=== PATIENT | female | born 1985 | race Caucasian/White ===

== ENCOUNTER 2016-07-02 15:39 | Inpatient (IN) | payer MEDICAID ==
[~2016-07-02] VITALS: Ht 154.9 cm; Wt 67.7 kg
[~2016-07-02 15:39] MED LIST: ACET500C5 PO; ONDA4TAB8 PO
[2016-07-02] MEDS ORDERED: IBUPROFEN 600 MG TAB PO PRN (17:30)
[2016-07-02] MEDS ORDERED: CARBOPROST 250 MCG INJ IM PRN (17:30)
[2016-07-02] MEDS ORDERED: OXYTOCIN 30 UNITS/LR 500 ML IV PRN (17:30)
[2016-07-02] MEDS ORDERED: BUTORPHANOL 2 MG INJ IV PRN ×2 (17:30)
[2016-07-02] MEDS ORDERED: MISOPROSTOL 200 MCG TAB PR PRN (17:30)
[2016-07-02] MEDS ORDERED: OXYTOCIN 30 UNITS/LR 500 ML IV SCH ×3 (17:30→18:30)
[2016-07-02] MEDS ORDERED: METHYLERGONOVINE 0.2 MG INJ IM PRN (17:30)
[2016-07-02] MEDS ORDERED: LIDOCAINE 1% (MPF) 30 ML INJ INJ PRN (17:30)
[2016-07-02 17:33] VITALS: BP 119/72; RESP 18
[2016-07-02 17:36] VITALS: Ht 154.9 cm; Wt 67.7 kg
[2016-07-02] MEDS ORDERED: FOLI0.4T2 PO (17:45)
[2016-07-02] MEDS ORDERED: PRENAT PO (17:45)
--- NOTE | 2016-07-02 17:52 | RADRPT ---
PROCEDURE: Obstetrical ultrasound. CLINICAL INDICATION: , evaluation. Pelvic pain. Preprocedural examination. TECHNIQUE: Transabdominal sonographic images of the pelvis are obtained. COMPARISON: OB ultrasound 01/04/2016 FINDINGS: Single intrauterine gestation. There is a cephalic presentation. Measurements were made in order to determine age. The results are as follows: BPD = 8.91 cm HC = 31.66 cm AC = 34.88 cm FL = 7.51 cm Amniotic fluid index is not measured. Heart rate = 158 beats per minute The placenta is fundal - left. There is no evidence for an abruption or placenta previa. Ovaries are not visualized. IMPRESSION: Single intrauterine gestation of approximately 37 weeks 1 days by ultrasound criteria. [place] estimated weight = 3360 g; 34 percentile for gestational age of 39 weeks 4 days. Gestational age and average ultrasound age are discordant, recommend confirmation of gestational age /LMP. RPTAT: AADD .Pete Scanlon MD, MD Date Time Electronically viewed and signed by .Pete Scanlon MD, on 07/02/2016 17:52 .B/
[2016-07-02] MEDS: LACTATED RINGER'S 1,000 ML IV SCH (18:01)
[2016-07-02 18:53] LABS: ADD SCAN DIFF NO
[2016-07-02 18:56] LABS: BASOPHILS % 0.4 % (0.0-2.0); EOSINOPHILS # 0.2 10^3/ul (0.0-0.5); EOSINOPHILS % 1.8 % (0.0-7.0); HEMATOCRIT 40.2 % (37.0-47.0); LYMPHOCYTES # 1.9 10^3/ul (0.8-2.9); LYMPHOCYTES % 18.7 % (15.0-51.0); MEAN CORPUSCULAR HEMOGLOBIN 33.3 pg (29.0-33.0); MEAN CORPUSCULAR HGB CONC 34.8 g/dl (32.0-37.0); MEAN CORPUSCULAR VOLUME 95.5 fl (82.0-101.0); MEAN PLATELET VOLUME 10.6 fl (7.4-10.4); MONOCYTE # 0.8 10^3/ul (0.3-0.9); NEUTROPHILS % 70.3 % (39.0-77.0); PLATELET COUNT 282 10^3/UL (140-415); RED BLOOD COUNT 4.21 10^6/ul (4.20-5.40); RED CELL DISTRIBUTION WIDTH 12.8 % (11.5-14.5)
[2016-07-02 19:12] LABS: INR 0.94; PROTIME 12.6 Sec (12.2-14.2)
[2016-07-02 19:13] LABS: PARTIAL THROMBOPLASTIN TIME 28.9 Sec (25.0-35.0)
[2016-07-03] MEDS: DEXTROSE 5%-LR 1,000 ML IV PRN ×2 (00:47→08:29)
[2016-07-03] MEDS: LACTATED RINGER'S 1,000 ML IV SCH ×3 (01:12→17:12)
[2016-07-03] MEDS: LACTATED RINGER'S 1,000 ML IV PRN ×2 (16:45→17:20)
[2016-07-03] MEDS ORDERED: NALOXONE (0.4 MG/ML) INJ IV PRN (17:30)
[2016-07-03] MEDS ORDERED: ONDANSETRON 4 MG INJ IV PRN (17:30)
[2016-07-03] MEDS ORDERED: FENTAnyl 2MCG/ML-ROPIV 0.2% 100 ML BAG EPI SCH (17:30)
[2016-07-03] MEDS ORDERED: DIPHENHYDRAMINE 50 MG INJ IV PRN (17:30)
[2016-07-03] MEDS ORDERED: FENTAnyl 2MCG/ML-ROPIV 0.2% 100 ML ONE (17:31)
[2016-07-04] MEDS: LACTATED RINGER'S 1,000 ML IV SCH (01:12)
--- NOTE | 2016-07-04 02:03 | LDN ---
Date/Time of Note Date/Time of Note DATE: 07/04/16 TIME: 02:02 Delivery Summary Placenta Delivered: Spontaneously Meconium: none Episiotomy: No Perineal laceration: 2 Anesthesia type: Epidural Estimated blood loss: 200 Sponge & Needle done & correct: Yes All needle counts correct: Yes Any foreign bodies felt in the: No Problems: Infant Delivery Information Apgars 1 Minute: 9 5 Minute: 9 Suctioning Nose & mouth suctioned at james: Yes Delee suction performed: Yes Umbilical Cord Umbilical cord with: 3 Vessels Cord presentations: nuchal cord Nuchal cord present X: 1 Cord Blood was obtained: Yes Mother & Baby Disposition Disposition Mom & Baby to Maternity; Good: Yes Baby to NICU: No STEVE ALEMAN M.D. July 04, 2016 02:03
--- NOTE | 2016-07-04 02:05 | HP ---
Date/Time of Note Date/Time of Note DATE: 07/04/16 TIME: 02:03 OB - History Hx of Present Free Text/Dictation 39+wks GA early labor : 1 Para: 0 Care: Good Care Ultrasounds: Normal mid trimester US Obstetrical Complications: None Medical Complications: None Past Family/Social History * Past Medical, Surgical, Family and Obstetric Histories reviewed from chart. OB Admission Exam Vital Signs Vital Signs Vital Signs Date Time Temp Pulse Resp B/P Pulse Ox O2 Delivery O2 Flow Rate FiO2 07/02/16 17:33 98.6 18 119/72 Room Air Physical Exam Abdomen: WNL Extremities: Normal Cervical Dilatation: 2cm Effacement: 75% Station: -1 Membranes: Intact Heart Rate: 140's Accelerations: Accelerations Present Decelerations: No Decelerations Varibility: Moderate Contractions on Admission: 6-10 Minutes Apart Last 72 hourBlood Glucose Bedside Glucose - 72 Hours Test 07/03/16 00:43 07/03/16 04:36 07/03/16 08:28 07/03/16 14:46 Bedside Glucose 89mg/dL (70-220) 94mg/dL (70-220) 85mg/dL (70-220) 95mg/dL (70-220) Test 07/03/16 18:18 Bedside Glucose 91mg/dL (70-220) Last 72 hours Lab Results CBC & BMP 07/02/16 17:55 OB Assessment/Plan Reason for admission: observation Plan: Expectant Management Induction Method: per Pitocin Protocol STEVE ALEMAN M.D. July 04, 2016 02:05
--- NOTE | 2016-07-04 02:12 | DELSUM ---
Delivery Summary A-C Datetime Report Generated by CPN: 07/04/2016 02:11 DELIVERY PERSONNEL Embosser Apprentice: Long, Addis MATERNAL INFORMATION Delivery Anesthesia: Epidural Medications in Delivery: OXYTOCIN 30UNITS IN 500ML LR Estimated Blood Loss (ml): 205 Placenta Cultured: No Maternal Complications: Other Other Maternal Complications: GESTATIONAL DIABETES LABOR SUMMARY EDC: 07/05/2016 00:00 No. Babies in Womb: 1 Attempted: No Labor Anesthesia: None LABOR INFORMATION Reason for Induction: Other Onset of Labor: 07/03/2016 10:09 Complete Dilatation: 07/03/2016 22:16 Oxytocin: Induction Group B Beta Strep: Negative Group B Beta Strep: Negative Antibiotics # of Doses: 0 Steroids Given: None Reason Steroids Not Administered: Not Applicable MEMBRANES Membranes Rupture Method: Artificial Rupture of Membranes: 07/03/2016 10:09 Length of Rupture (hr): 15.05 Amniotic Fluid Color: Clear Amniotic Fluid Color: Clear Amniotic Fluid Color: Clear Amniotic Fluid Color: Clear Amniotic Fluid Color: Clear Amniotic Fluid Color: Clear Amniotic Fluid Color: Clear Amniotic Fluid Color: Clear Amniotic Fluid Color: Clear Amniotic Fluid Color: Clear Amniotic Fluid Color: Clear Amniotic Fluid Color: Clear Amniotic Fluid Color: Clear Amniotic Fluid Color: Clear Amniotic Fluid Color: Clear Amniotic Fluid Color: Clear Amniotic Fluid Amount: Moderate Amniotic Fluid Amount: Moderate Amniotic Fluid Amount: Moderate Amniotic Fluid Amount: Moderate Amniotic Fluid Amount: Moderate Amniotic Fluid Amount: Moderate Amniotic Fluid Amount: Moderate Amniotic Fluid Amount: Moderate Amniotic Fluid Amount: Moderate Amniotic Fluid Amount: Moderate Amniotic Fluid Amount: Moderate Amniotic Fluid Amount: Moderate Amniotic Fluid Amount: Moderate Amniotic Fluid Amount: Moderate Amniotic Fluid Amount: Moderate Amniotic Fluid Amount: Moderate Amniotic Fluid Odor: None Amniotic Fluid Odor: None Amniotic Fluid Odor: None Amniotic Fluid Odor: None Amniotic Fluid Odor: None Amniotic Fluid Odor: None Amniotic Fluid Odor: None Amniotic Fluid Odor: None Amniotic Fluid Odor: None Amniotic Fluid Odor: None Amniotic Fluid Odor: None Amniotic Fluid Odor: None Amniotic Fluid Odor: None Amniotic Fluid Odor: None Amniotic Fluid Odor: Normal Amniotic Fluid Odor: Normal STAGES OF LABOR Stage 1 hr: 12 Stage 1 min: 7 Stage 2 hr: 2 Stage 2 min: 56 Stage 3 hr: 0 Stage 3 min: 1 Total Time in Labor hr: 15 Total Time in Labor min: 4 VAGINAL DELIVERY Episiotomy: None Laceration Extension: Second Degree Laceration Type: Perineal Laceration Repair: Yes Initial Vag Sponge Count: 20 Final Vag Sponge Count: 20 Initial Vag Sharps Count: 1 Final Vag Sharps Count: 4 Sponge Count Correct: Yes Sharps Count Correct: Yes BABY A INFORMATION Infant Delivery Date/Time: 07/04/2016 01:12 Method of Delivery: Vaginal Born in Route : No : N/A Forceps: N/A Vacuum Extraction: N/A Shoulder Dystocia : N/A SHOULDER DYSTOCIA BABY A Infant Delivery Date/Time: 07/04/2016 01:12 PRESENTATION/POSITION BABY A Presentation: Cephalic Presentation: Cephalic Cephalic Presentation: Vertex Vertex Position: Left Occipital Posterior Breech Presentation: N/A PLACENTA INFORMATION BABY A Placenta Delivery Time : 07/04/2016 01:13 Placenta Method of Delivery: Spontaneous Placenta Status: Delivered SCORES BABY A Heart Rate 1 min: >100 bpm Resp Effort 1 min: Good Cry Reflex Irritability 1 min: Cough/Sneeze/Pulls Away Muscle Tone 1 min: Active Motion Color 1 min: Body [place], Extremit Blue Resuscitation Effort 1 min: Tactile Stimulation SCORE 1 MIN: 9 Heart Rate 5 min: >100 bpm Resp Effort 5 min: Good Cry Reflex Irritability 5 min: Cough/Sneeze/Pulls Away Muscle Tone 5 min: Active Motion Color 5 min: Body [place], Extremit Blue Resuscitation Effort 5 min: Tactile Stimulation SCORE 5 MIN: 9 INFORMATION BABY A Gestational Age at Delivery: 39.5 Gestational Status: Full Term- 39- 40.6 Weeks Infant Outcome : Liveborn Infant Condition : Stable Infant Sex: Male IDENTIFICATION/MEDS BABY A ID Band Number: [id number] ID Band Location: Right Leg; Left Arm Sensor Applied: Yes Sensor Number: [id number] Sensor Location : Cord Clamp Vitamin K Given : Not Given Erythromycin Given: Not Given WEIGHT/LENGTH BABY A Infant Birthweight (gm): 3030 Infant Weight (lb): 6 Infant Weight (oz): 11 Length (in): 18.50 Infant Length (cm): 46.99 CORD INFORMATION BABY A No. Cord Vessels: 3 Nuchal Cord : Around Neck x1, Loose Cord Blood Taken: Yes Banking/Donate Info: NO Suction: Mouth; Nose ASSESSMENT BABY A Infant Complications: None Physical Findings at Delivery: Within Normal Limits Infant Respirations: Appears Normal Infant Care By: CHANEL RENDON RN Transferred To: Remains with Mother
[2016-07-04 03:20] VITALS: BP 110/64; PULSE 79; RESP 18
[2016-07-04] MEDS ORDERED: LANOLIN 7 GM TUBE TOP PRN (04:00)
[2016-07-04] MEDS ORDERED: CARBOPROST 250 MCG INJ IM PRN (04:00)
[2016-07-04] MEDS ORDERED: METHYLERGONOVINE 0.2 MG INJ IM PRN (04:00)
[2016-07-04] MEDS ORDERED: MISOPROSTOL 200 MCG TAB PR PRN (04:00)
[2016-07-04] MEDS ORDERED: SENNA/DOCUSATE NA (8.6MG/50MG) TAB PO PRN (04:00)
[2016-07-04] MEDS ORDERED: ZOLPIDEM 5 MG TAB PO PRN (04:00)
[2016-07-04] MEDS ORDERED: OXYCODONE/ASPIRIN (4.88/325) TAB PO PRN (04:00)
[2016-07-04] MEDS ORDERED: OXYTOCIN 30 UNITS/LR 500 ML IV PRN (04:00)
[2016-07-04] MEDS ORDERED: BENZOCAINE 20% 56 ML SPRAY TOP PRN (04:00)
[2016-07-04] MEDS: WITCH HAZEL/GLYCERIN PAD PR PRN (04:41)
[2016-07-04] MEDS: IBUPROFEN 600 MG TAB PO SCH ×4 (05:21→23:48)
[2016-07-04] MEDS: LACTATED RINGER'S 1,000 ML IV* SCH ×3 (06:11→19:38)
[2016-07-04 07:59] LABS: ADD SCAN DIFF NO
[2016-07-04 08:04] LABS: ABNORMAL IP MESSAGE 1; HEMATOCRIT 37.1 % (37.0-47.0); HEMOGLOBIN 12.5 g/dl (12.0-16.0); MEAN CORPUSCULAR HEMOGLOBIN 32.6 pg (29.0-33.0); MEAN CORPUSCULAR HGB CONC 33.7 g/dl (32.0-37.0); MEAN CORPUSCULAR VOLUME 96.9 fl (82.0-101.0); MEAN PLATELET VOLUME 10.8 fl (7.4-10.4); PLATELET COUNT 235 10^3/UL (140-415); RED BLOOD COUNT 3.83 10^6/ul (4.20-5.40); RED CELL DISTRIBUTION WIDTH 13.2 % (11.5-14.5); WHITE BLOOD COUNT 24.2 10^3/ul (4.8-10.8)
[2016-07-04 09:01] VITALS: BP_SYST 111; BP_SYST 94; BP_DIAS 61; BP_DIAS 71; PULSE 75; PULSE 80; RESP 16
[2016-07-04] MEDS: SENNA/DOCUSATE NA (8.6MG/50MG) TAB PO SCH ×2 (09:08→21:09)
[2016-07-04 11:14] LABS: LYMPHOCYTES # 2.4 10^3/ul (0.8-2.9); MONOCYTE # 2.2 10^3/ul (0.3-0.9); NEUTROPHIL # 19.6 10^3/ul (1.6-7.5)
[2016-07-04 12:24] VITALS: BP 93/61; PULSE 83; RESP 16
--- NOTE | 2016-07-04 13:04 | QN ---
Documentation Comment PPD#1 is stable afebrile tolerates deit No Vb +BM +voids Vs stable Gen NAD Abd soft NT ND Genitalia No blood at perinium --->discharge plan tomorrow STEVE ALEMAN M.D. July 04, 2016 13:04
[2016-07-04 16:47] VITALS: BP 99/51; PULSE 84; RESP 14
[2016-07-04 20:00] VITALS: BP 104/72; PULSE 78; RESP 17
[2016-07-05] MEDS: LACTATED RINGER'S 1,000 ML IV* SCH ×3 (03:38→19:38)
[2016-07-05 04:00] VITALS: BP 100/58; PULSE 75; RESP 17
[2016-07-05] MEDS: IBUPROFEN 600 MG TAB PO SCH ×4 (06:25→23:31)
[2016-07-05 08:00] VITALS: BP 120/70; PULSE 74; RESP 20
[2016-07-05] MEDS: SENNA/DOCUSATE NA (8.6MG/50MG) TAB PO SCH ×2 (10:05→21:00)
[2016-07-05] MEDS: WITCH HAZEL/GLYCERIN PAD PR PRN (15:14)
[2016-07-05 15:30] VITALS: PULSE 70; RESP 18
[2016-07-05 16:00] VITALS: BP 111/68; PULSE 70; RESP 16
[2016-07-05] MEDS ORDERED: DIPHTH/TET/ACEL PERTUSS (ADULT) 0.5 ML VIAL IM* ONE (16:00)
[2016-07-05 19:35] VITALS: BP 121/77; PULSE 80; RESP 18
[2016-07-06] MEDS: LACTATED RINGER'S 1,000 ML IV* SCH ×2 (03:38→11:38)
[2016-07-06 04:00] VITALS: BP 111/63; PULSE 68; RESP 17
[2016-07-06] MEDS: IBUPROFEN 600 MG TAB PO SCH (05:21)
[2016-07-06 08:00] VITALS: BP 121/93; PULSE 67; RESP 17
[2016-07-06] MEDS ORDERED: DIPHTH/TET/ACEL PERTUSS (ADULT) 0.5 ML VIAL IM* ONE (09:00)
[2016-07-06] MEDS: SENNA/DOCUSATE NA (8.6MG/50MG) TAB PO SCH (10:09)
== END 2016-07-06 15:31 | disposition home or self-care (01) | DRG 775 ==
LOC: L-D 15:39 → PP1 07-04 03:07 → EDSTATUS 07-05 15:39
PROVIDERS: ADMIT Obstetrics & Gynecology; ATTEND Obstetrics & Gynecology
PROC: 10E0XZZ Delivery of Products of Conception, External Approach (ICD-10-PCS; principal; 2016-07-03)
PROC: 0KQM0ZZ Repair Perineum Muscle, Open Approach (ICD-10-PCS; 2016-07-03)
DX: O70.1 Second degree perineal laceration during delivery (principal); Z37.0 Single live birth; O69.81X0 Labor and delivery complicated by cord around neck, without compression, not applicable or unspecified; Z3A.39 39 weeks gestation of pregnancy
CPT/HCPCS: 62319; 76815; 82947; 82962; 85025; 85610; 85730; 86592; 86900; 86901; 90715; J2590; J3010; J7120

== ENCOUNTER 2018-05-16 19:18 | Outpatient (CLI) | payer MEDICAID ==
[~2018-05-16] VITALS: Ht 154.9 cm; Wt 65.4 kg
[2018-05-16 20:00] VITALS: BP 122/70; PULSE 104; RESP 18
[2018-05-16] MEDS ORDERED: AL HYDROX/MG HYDROX/SIMETH 30 ML CUP PO ONE (21:00)
[2018-05-16] MEDS ORDERED: ACETAMINOPHEN 325 MG TAB PO ONE (21:00)
[2018-05-16] MEDS ORDERED: FERR134T PO (21:58)
[2018-05-16] MEDS ORDERED: PREN-19 PO (21:58)
--- NOTE | 2018-05-16 23:38 | PN ---
Triage Information Date/Time Reason for visit: Weeks of Gestation 30w 4d /Para Objective Vital Signs Date Temp Pulse Resp B/P (MAP) Pulse Ox O2 O2 Flow FiO2 Time Delivery Rate 05/16/18 98.6 104 18 122/70 Room Air 20:00 (87) Heart Rate Comments reactive Contractions: None Exam EKG: sinus tachycardia Results/Medications Result Diagram: 05/16/182204 Results 24 hrs Laboratory Tests Test 05/16/18 19:30 05/16/18 22:05 Urine Color YELLOW Urine Clarity SLIGHTLY CLOUDY A Urine pH 7.0 Urine Specific [place] 1.003 Urine Ketones NEGATIVE Urine Nitrite NEGATIVE Urine Bilirubin NEGATIVE Urine Urobilinogen NEGATIVE Urine Leukocyte Esterase NEGATIVE Urine Microscopic RBC 0 Urine Microscopic WBC 3 Urine Squamous Epithelial Cells FEW Urine Bacteria FEW A Urine Hemoglobin 1+ H Urine Glucose 1+ H Urine Total Protein NEGATIVE White Blood Count 17.5 #H Red Blood Count 4.06 L Hemoglobin 12.7 Hematocrit 37.9 Mean Corpuscular Volume 93.3 Mean Corpuscular Hemoglobin 31.3 Mean Corpuscular Hemoglobin Concent 33.5 Red Cell Distribution Width 13.4 Platelet Count 283 # Mean Platelet Volume 9.8 Immature Granulocytes % 1.100 H Neutrophils % 80.2 H Lymphocytes % 8.9 L Monocytes % 8.1 Eosinophils % 1.2 Basophils % 0.5 Nucleated Red Blood Cells % 0.0 Immature Granulocytes # 0.190 H Neutrophils # 14.0 H Lymphocytes # 1.6 Monocytes # 1.4 H Eosinophils # 0.2 Basophils # 0.1 Nucleated Red Blood Cells # 0.0 Disposition: Discharge Assessment/Plan 32 y/o at 30w 4d who presents with pleuritic chest pain. Patient denies any URI symptoms. Also reports episodes of dizziness over last 2 weeks. Chestpain resolved with tylenol and [place]. Tachycardia improved. Cbc with leukocytosis, but patient afebtile. EKG with sinus rhythm. -discharge home -tylenol prn, suspect musculoskeletal -f/u OB LATISHA WYMAN May 16, 2018 23:38
--- NOTE | 2018-05-17 06:15 | TRIAGE ---
OB Triage Datetime Report Generated by CPN: 05/17/2018 06:15 Datetime: 05/16/2018 23:10 Stage of : OB Triage Labor Evaluation Frequency: 10-15 Monitor Mode: External Duration (sec)2399: 60-100 Quality: Moderate Pattern: Normal: <= 5 Contractions in 10 Minutes Resting Tone [place]: Relaxed Heart Rate FHR Baseline Rate: 140 Monitor Mode: External US FHR Baseline Changes: No Baseline Change Variability: Moderate 6-25 bpm Accelerations: 15X15 Decelerations: None Category: Category I Pain Assessment Pain Scale: 0 Pain Presence: None/Denies Pain Type: N/A Vaginal Exam Dilatation (cms): 2.0 Effacement (%): 60 Station: -2 Exam By: Caity Cosme Membrane Status: Intact Vaginal Bleeding: Scant Cervix, Consistency: Soft Cervix, Position: Posterior Presentation 'A': Cephalic Datetime: 05/16/2018 21:34 Stage of : OB Triage Datetime: 05/16/2018 20:14 Membrane Status: Intact Datetime: 05/16/2018 20:00 Time of Arrival: 05/16/2018 19:11 EGA: 30.4 Arrived By: Ambulatory Arrived From: Home Chief Complaint: c/o dizziness x 2 wks and occas chest pain radiating to left arm on deep insp iration Movement: Present Contractions: Denies/Absent Rupture of Membranes: Denies Vaginal Bleeding: None Vaginal Discharge: Denies Recent Sexual Intercouse: Denies Abdominal Trauma: Not Applicable Patient Complaints: Dizziness Time Provider Notified: 05/16/2018 19:30 Provider Notified: Dr Robison Datetime: 05/16/2018 19:40 Maternal Assessment Level of Consciousness: Fully Conscious Headache: Denies Blurred Vision: No Respiratory Effort: Unlabored Nausea/Vomiting: Denies RUQ Epigastric Pain: Denies Facial Edema: None Monitor Mode: External Resting Tone [place]: Relaxed Heart Rate FHR Baseline Rate: 150 Monitor Mode: External US Pain Assessment Pain Scale: 3 Pain Presence: Intermittent Pain Type: Stabbing Pain Location: Left Chest; Left Arm
--- NOTE | 2018-05-19 18:41 | RADRPT ---
Vent Rate: 105 bpm RR Interval: 0 msec [place] Interval: 138 msec QRS Duration: 80 msec QT Interval: 340 msec QTC Interval: 449 msec P-R-T [place]: 46 - 37 - 14 degrees Poor data quality, interpretation may be adversely affected Sinus tachycardia Otherwise normal ECG Electronically Signed By: Bk Brasher
== END 2018-05-16 23:30 | disposition home or self-care (01) ==
LOC: OBT 19:18 → L-D 19:20 → OBT 23:30
PROVIDERS: ATTEND Specialist
DX: O26.893 Other specified pregnancy related conditions, third trimester (principal); Z3A.30 30 weeks gestation of pregnancy; R07.81 Pleurodynia
CPT/HCPCS: 36415; 81001; 85025; 93005; Z7500; Z7610; G0463

== ENCOUNTER 2018-07-14 20:49 | Inpatient (IN) | payer MEDICAID ==
[~2018-07-14] VITALS: Ht 142.2 cm; Wt 71.4 kg
[~2018-07-14 20:49] MED LIST changes: -ACET500C5 PO; +FERR134T PO; -ONDA4TAB8 PO; +PREN-19 PO
[2018-07-14] MEDS ORDERED: LACTATED RINGER'S 1,000 ML IV SCH (21:31)
[2018-07-14 21:46] VITALS: Ht 142.2 cm; Wt 71.4 kg
--- NOTE | 2018-07-14 21:52 | TRIAGE ---
OB Triage Datetime Report Generated by CPN: 07/14/2018 21:52 Datetime: 07/14/2018 21:00 Stage of : OB Triage Maternal Assessment Level of Consciousness: Fully Conscious DTR's/Clonus: DTRs 2+; No Clonus Headache: Denies Blurred Vision: No Respiratory Effort: Unlabored; Regular Rhythm; Equal Expansion Breath Sounds, Left: Clear and Equal Breath Sounds, Right: Clear and Equal Nausea/Vomiting: Denies RUQ Epigastric Pain: Denies Facial Edema: None Temperature Route: Axillary Fall Risk Assessment History of Falling: (0) No Secondary Diagnosis: (0) No Ambulatory Aid: (0) Bedrest/Nurse Assist IV Therapy: (0) No Gait: (0) Normal/Bedrest/Immobile Mental Status: (0) Oriented to Own Ability Fall Score: 0 Fall Risk Score Definition: No Risk: No action required Datetime: 07/14/2018 20:51 Vaginal Exam Dilatation (cms): 7.5 Exam By: Dr. Yee Datetime: 07/14/2018 20:40 Time of Arrival: 07/14/2018 20:40 EGA: 39.0 Arrived By: Wheelchair Arrived From: Home Chief Complaint: Contractions, (+)show Movement: Present Contractions: Regular Rupture of Membranes: Denies Vaginal Bleeding: Normal Show Vaginal Discharge: Present Recent Sexual Intercouse: Denies Abdominal Trauma: Not Applicable Patient Complaints: Contractions Time Provider Notified: 07/14/2018 20:50 Provider Notified: Dr. Yee Initial Plan: EFM, SVE: 7.5 Datetime: 05/16/2018 20:00 EGA: 30.4
[2018-07-14] MEDS ORDERED: OXYTOCIN 30 UNITS/LR 500 ML IV PRN ×2 (22:00→22:30)
[2018-07-14] MEDS ORDERED: MISOPROSTOL 200 MCG TAB PR PRN ×2 (22:00→22:30)
[2018-07-14] MEDS ORDERED: LIDOCAINE 1% (MPF) 30 ML INJ INJ PRN (22:00)
[2018-07-14] MEDS ORDERED: METHYLERGONOVINE 0.2 MG INJ IM PRN (22:00)
[2018-07-14] MEDS ORDERED: CARBOPROST 250 MCG INJ IM PRN ×2 (22:00→22:30)
[2018-07-14] MEDS ORDERED: OXYTOCIN 30 UNITS/LR 500 ML IV SCH ×2 (22:00)
--- NOTE | 2018-07-14 22:04 | HP ---
Date/Time of Note Date/Time of Note DATE: 07/14/18 TIME: 22:03 OB - History Hx of Present Free Text/Dictation 32 YO with EDC 07/21/2018 with IUP at 39 weeks reported in active labor Care: Good Care Ultrasounds: Normal mid trimester US Obstetrical Complications: None Medical Complications: None Past Family/Social History * Past Medical, Surgical, Family and Obstetric Histories reviewed from chart. OB Admission Exam Physical Exam HEENT: WNL Heart: Rhythm Normal Lungs: Clear, Equal Abdomen: WNL Extremities: Normal Reflexes: Normal Cervical Dilatation: 10cm Effacement: 100% Station: -2 Last 72 hours Lab Results CBC & BMP 07/14/18 21:00 OB Assessment/Plan Reason for admission: active labor Plan: Expectant Management ALEJANDRO ANDERS MD July 14, 2018 22:04
[2018-07-14] MEDS ORDERED: LACTATED RINGER'S 1,000 ML IV* SCH (22:07)
--- NOTE | 2018-07-14 22:07 | LDN ---
Date/Time of Note Date/Time of Note DATE: 07/14/18 TIME: 22:04 Delivery Summary 32 YO with EDC 07/21/2018 with IUP at 39 weeks reported in active labor. s/p of viable male infant with APGARS of 9 and 9. After delivery of the head the rest of the body delivered easily. I did not apply excessive traction. Placenta delivered spontaneously and intact. evaluation of the placenta confirmed intact placenta. Uterus was firm with cervix closed on exam. 1st degree perineal laceration was repaired in normal fashion with 2-0 Chromic under local anesthesia. Placenta Delivered: Spontaneously Episiotomy: No Perineal laceration: 1 Anesthesia type: Local Estimated blood loss: 300 Sponge & Needle done & correct: Yes All needle counts correct: Yes Any foreign bodies felt in the: No Infant Delivery Information Sex Sex: male Apgars 1 Minute: 9 5 Minute: 9 Suctioning Nose & mouth suctioned at james: No Delee suction performed: No Umbilical Cord Umbilical cord with: 3 Vessels Cord presentations: no nuchal cord Nuchal cord present X: 0 Cord Blood was obtained: Yes Mother & Baby Disposition Disposition Mom & Baby to Maternity; Good: Yes ALEJANDRO ANDERS MD July 14, 2018 22:07
[2018-07-14] MEDS ORDERED: HYDROCODONE/APAP (5/325) TAB PO PRN ×2 (22:30)
[2018-07-14] MEDS ORDERED: ONDANSETRON 4 MG INJ IV PRN (22:30)
[2018-07-14] MEDS ORDERED: BENZOCAINE 20% 56 ML SPRAY TOP PRN (22:30)
[2018-07-14] MEDS ORDERED: DIPHENHYDRAMINE 25 MG CAP PO PRN (22:30)
[2018-07-14] MEDS ORDERED: DIBUCAINE 1% 30 GM OINT TOP PRN (22:30)
[2018-07-14] MEDS ORDERED: ONDANSETRON 4 MG TAB PO PRN (22:30)
[2018-07-14] MEDS ORDERED: MAGNESIUM HYDROXIDE 30ML CUP PO PRN (22:30)
[2018-07-14] MEDS ORDERED: SENNA/DOCUSATE NA (8.6MG/50MG) TAB PO PRN (22:30)
[2018-07-14] MEDS ORDERED: DIPHENHYDRAMINE 50 MG INJ IV PRN (22:30)
[2018-07-14] MEDS ORDERED: NA PHOSPHATE/BIPHOS 133 ML ENEMA PR PRN (22:30)
[2018-07-15 00:20] VITALS: BP 126/77; PULSE 84; RESP 18
[2018-07-15] MEDS: WITCH HAZEL/GLYCERIN PAD PR PRN (00:39)
[2018-07-15] MEDS: IBUPROFEN 600 MG TAB PO SCH ×5 (00:39→23:51)
[2018-07-15 04:11] VITALS: BP 104/61; PULSE 86; RESP 18
[2018-07-15 08:15] VITALS: BP 96/57; PULSE 76
[2018-07-15] MEDS: SENNA/DOCUSATE NA (8.6MG/50MG) TAB PO SCH ×2 (09:35→21:38)
--- NOTE | 2018-07-15 10:05 | DS ---
Date/Time of Note Date/Time of Note DATE: 07/15/18 TIME: 10:04 Obstetrical Discharge Record Final Diagnosis Final Diagnosis: Term delivered Vaginal Delivery Obstetrical Delivery: Spontaneous Complications Augmentation: No Induction: No Rupture of Membranes: No Condition on Discharge Physical Assessment Voiding: Yes Bowel Movement: Yes Breast: Soft, non-tender, Filling Fundus: Firm Abdomen and Incision: soft, not tender Calf Tenderness: No Patient Condition: Good ALEJANDRO ANDERS MD July 15, 2018 10:05
[2018-07-15 16:22] VITALS: BP 95/52; PULSE 76; RESP 18
[2018-07-15 20:15] VITALS: BP 104/67; PULSE 86; RESP 18
[2018-07-15] MEDS: LANOLIN HPA 1 PKT TOP PRN (21:38)
[2018-07-16 04:10] VITALS: BP 101/60; PULSE 72; RESP 18
[2018-07-16] MEDS: IBUPROFEN 600 MG TAB PO SCH (05:39)
[2018-07-16 07:45] VITALS: BP 106/56; PULSE 67; RESP 16
[2018-07-16] MEDS: LANOLIN HPA 1 PKT TOP PRN (07:51)
[2018-07-16] MEDS: WITCH HAZEL/GLYCERIN PAD PR PRN (07:51)
[2018-07-16] MEDS: SENNA/DOCUSATE NA (8.6MG/50MG) TAB PO SCH (07:51)
[2018-07-16] MEDS ORDERED: MEASLES,MUMPS,RUBELLA VACCINE INJ SC* ONE (09:00)
[2018-07-16] MEDS ORDERED: DIPHTH/TET/ACEL PERTUSS (ADULT) 0.5 ML VIAL IM* ONE (09:00)
[2018-07-16] MEDS ORDERED: VARICELLA VACCINE LIVE/PF 1,350 UNIT/0.5 ML ML SC* ONE (09:00)
--- NOTE | 2018-07-17 13:00 | DELSUM ---
Delivery Summary A-C Datetime Report Generated by CPN: 07/17/2018 13:00 DELIVERY PERSONNEL Car Coupler: Soleimani, Neha MATERNAL INFORMATION Delivery Anesthesia: Local Medications in Delivery: Pitocin 30 Delivery QBL (ml): 300 Placenta Cultured: No Maternal Complications: None LABOR SUMMARY EDC: 07/21/2018 00:00 No. Babies in Womb: 1 Attempted: No Labor Anesthesia: None LABOR INFORMATION Reason for Induction: Not Applicable Onset of Labor: 07/14/2018 11:00 Complete Dilatation: 07/14/2018 21:28 Oxytocin: N/A Group B Beta Strep: Negative Steroids Given: None Reason Steroids Not Administered: Not Applicable MEMBRANES Membranes Rupture Method: Artificial Rupture of Membranes: 07/14/2018 21:28 Length of Rupture (hr): 0.33 Amniotic Fluid Color: Clear Amniotic Fluid Amount: Small Amniotic Fluid Odor: None STAGES OF LABOR Stage 1 hr: 10 Stage 1 min: 28 Stage 2 hr: 0 Stage 2 min: 20 Stage 3 hr: 0 Stage 3 min: 2 Total Time in Labor hr: 10 Total Time in Labor min: 50 VAGINAL DELIVERY Episiotomy: None Laceration Extension: First Degree Laceration Type: Perineal Laceration Repair: Yes Initial Vag Sponge Count: 10 Final Vag Sponge Count: 10 Initial Vag Sharps Count: 2 Final Vag Sharps Count: 2 Sponge Count Correct: Yes Sharps Count Correct: Yes BABY A INFORMATION Infant Delivery Date/Time: 07/14/2018 21:48 Method of Delivery: Vaginal Born in Route : No : N/A Forceps: N/A Vacuum Extraction: N/A Shoulder Dystocia : N/A SHOULDER DYSTOCIA BABY A Delivery Date/Time: 07/14/2018 21:48 PRESENTATION/POSITION BABY A Presentation: Cephalic Cephalic Presentation: Vertex Vertex Position: Left Occipital Posterior Breech Presentation: N/A PLACENTA INFORMATION BABY A Placenta Delivery Time : 07/14/2018 21:50 Placenta Method of Delivery: Spontaneous Placenta Status: Delivered SCORES BABY A Heart Rate 1 min: >100 bpm Resp Effort 1 min: Good Cry Reflex Irritability 1 min: Cough/Sneeze/Pulls Away Muscle Tone 1 min: Active Motion Color 1 min: Body [place], Extremit Blue SCORE 1 MIN: 9 Heart Rate 5 min: >100 bpm Resp Effort 5 min: Good Cry Reflex Irritability 5 min: Cough/Sneeze/Pulls Away Muscle Tone 5 min: Active Motion Color 5 min: Body [place], Extremit Blue SCORE 5 MIN: 9 INFANT INFORMATION BABY A Gestational Age at Delivery: 39.0 Gestational Status: Full Term- 39- 40.6 Weeks Infant Outcome : Liveborn Infant Condition : Stable Infant Sex: Male IDENTIFICATION/MEDS BABY A ID Band Number: [id number] ID Band Location: Right Leg; Left Arm Sensor Applied: Yes Sensor Number: [id number] Sensor Location : Cord Clamp Vitamin K Given : Not Given Erythromycin Given: Not Given WEIGHT/LENGTH BABY A Birthweight (gm): 3200 Weight (lb): 7 Weight (oz): 1 Length (in): 20.00 Infant Length (cm): 50.80 CORD INFORMATION BABY A No. Cord Vessels: 3 Nuchal Cord : N/A Cord Blood Taken: Yes Suction: Mouth; Nose ASSESSMENT BABY A Complications: None Physical Findings at Delivery: Within Normal Limits Infant Respirations: Appears Normal [place] Marker Machine/ALS Called : No Transferred To: Remains with Mother
== END 2018-07-16 12:05 | disposition home or self-care (01) | DRG 807 ==
LOC: OBT 20:49 → L-D 20:50 → OBT 20:55 → L-D 20:55 → PP1 07-15 00:27
PROVIDERS: ADMIT Specialist; ATTEND Specialist
PROC: 10E0XZZ Delivery of Products of Conception, External Approach (ICD-10-PCS; principal; 2018-07-14)
PROC: 0HQ9XZZ Repair Perineum Skin, External Approach (ICD-10-PCS; 2018-07-14)
DX: O70.0 First degree perineal laceration during delivery (principal); Z37.0 Single live birth; Z3A.39 39 weeks gestation of pregnancy
CPT/HCPCS: 85025; 85610; 85730; 86592; 86850; 86900; 86901; 87340; 90716; G0463; J2590; J7120